=== PATIENT | female | born 2000 | race Caucasian/White ===

== ENCOUNTER 2020-03-07 12:09 | Emergency (ER) | payer MEDICAID ==
[~2020-03-07] VITALS: Ht 157.5 cm; Wt 101.2 kg
[2020-03-07 12:29] VITALS: BP_SYST 123
--- NOTE | 2020-03-07 12:29 | NUR ---
Patient triaged and placed in waiting room. VSS and patient appears in no acute distress at this time. Awaiting available bed, and MD notified of need for MSE.
--- NOTE | 2020-03-07 13:10 | NUR ---
Patient to ER bed 1 to gown for evaluation. Side rails up.
--- NOTE | 2020-03-07 13:12 | NUR ---
Dr Melgoza at bedside examining patient
--- NOTE | 2020-03-07 13:12 | NUR ---
Pt brought by mother,A&Ox4, pt presents to ER with N/V x 1 yesterday, skin pink and warm, cap refill <3, VSS, respirations even and unlabored, no active vomiting noted .
[2020-03-07 13:28] VITALS: BP_SYST 123
--- NOTE | 2020-03-07 13:30 | NUR ---
Patient given written and verbal discharge instructions and verbalizes understanding. ER MD discussed with patient the results and treatment provided. Patient in stable condition. ID arm band removed. Rx of Microgestin Fe given. Patient educated on pain management and to follow up with PMD. Pain Scale 0/10 . Opportunity for questions provided and answered. Medication side effect fact sheet provided.
== END 2020-03-07 13:28 | disposition home or self-care (01) ==
LOC: SED 12:09
DX: N92.6 Irregular menstruation, unspecified (principal); R11.10 Vomiting, unspecified
CPT/HCPCS: 99283

== ENCOUNTER 2020-10-04 11:26 | Emergency (ER) | payer MEDICAID ==
[~2020-10-04] VITALS: Ht 157.5 cm; Wt 99.8 kg
[2020-10-04 11:26] VITALS: BP_SYST 105
--- NOTE | 2020-10-04 11:26 | NUR ---
BROUGHT INTO TRIAGE TENT AND TRIAGED, REPORT GIVEN TO RACQUEL
--- NOTE | 2020-10-04 11:30 | NUR ---
Pt came to ER for low back pain abd pain and states period is late. Pt resting in chair at this time
--- NOTE | 2020-10-04 11:40 | NUR ---
ER at bedside examining patient.
[2020-10-04] MEDS ORDERED: ONDANSETRON 4 MG ODT TAB PO ONE (11:45)
[2020-10-04] MEDS ORDERED: KETOROLAC TROMETHAMINE 60 MG/2 ML VIAL IM ONE ×2 (12:15→12:27)
[2020-10-04 12:45] LABS: BILIRUBIN,URINE 1+ (NEGATIVE); BLOOD, URINE 3+ (NEGATIVE); COLOR,URINE YELLOW (YELLOW); GLUCOSE,URINE NEGATIVE (NEGATIVE); KETONES,URINE TRACE (NEGATIVE); LEUKOCYTE ESTERASE ,URINE NEGATIVE (NEGATIVE); NITRITE, URINE NEGATIVE (NEGATIVE); PROTEIN URINE 2+ (NEGATIVE); UROBILINOGEN,URINE 0.2 (0.2-1.0)
[2020-10-04 12:46] LABS: CLARITY/URINE CLOUDY (CLEAR)
--- NOTE | 2020-10-04 12:49 | NUR ---
DR GREENE SPEAKING WITH PT IN TRIAGE AT THIS TIME.
--- NOTE | 2020-10-04 12:55 | NUR ---
# 20 gauge angiocath placed to right AC . Use of asceptic technique. Opsite placed over site. Blood return noted. Blood for lab drawn from site. Flushed with 10 cc of normal saline. No evidence of infiltration noted. Patient tolerated well. Medicated per MD orders. IVF infusing with no s/s of infiltration at this time. Will cont to monitor
[2020-10-04] MEDS ORDERED: NACL 0.9% 1,000 ML IV ONE (13:00)
[2020-10-04] MEDS ORDERED: ONDANSETRON HCL 4 MG/2 ML VIAL IVP ONE (13:00)
[2020-10-04] MEDS ORDERED: MORPHINE 4 MG/ML INJ. SYRINGE IVP ONE (13:00)
[2020-10-04 13:04] LABS: BACTERIA,URINE FEW /HPF (None Seen); WBC,URINE 0-3 /HPF (0-3)
[2020-10-04 13:05] LABS: HYALINE CASTS, URINE 0-10 /LPF (None Seen)
[2020-10-04 14:10] VITALS: BP_SYST 110
--- NOTE | 2020-10-04 14:10 | NUR ---
Patient given written and verbal discharge instructions and verbalizes understanding. ER MD discussed with patient the results and treatment provided. Patient in stable condition. ID arm band removed. IV catheter removed intact and dressing applied, no active bleeding. Rx of Motrin, [place] & Zofran given. Patient educated on pain management and to follow up with PMD. Pain Scale 0/10 . Opportunity for questions provided and answered. Medication side effect fact sheet provided.
== END 2020-10-04 14:10 | disposition home or self-care (01) ==
LOC: SED 11:26
DX: R10.13 Epigastric pain (principal); M54.5 Low back pain; R11.2 Nausea with vomiting, unspecified
CPT/HCPCS: 81000; 81025; 96361; 96372; 96374; 96375; 99284; J1885; J2270; J2405; J7030; Q0162